=== PATIENT | female | born 1995 | race Caucasian/White ===

== ENCOUNTER 2023-05-23 19:48 | Inpatient (IN) | payer BC, SELFPAY ==
[2023-05-23] VITALS (10 sets, daily range): BP systolic 100–141; BP diastolic 60–94; PULSE 80–100; RESP 18; TEMP 36.9–37
[2023-05-23 20:51] LABS: Hematocrit 39.3 % (36.0-48.0); Hemoglobin 13.7 g/dL (12.0-16.0); Mean Corpuscular HGB Conc 34.9 g/dL (29.9-35.2); Mean Corpuscular Hemoglobin 29.8 pg (26.7-34.0); Mean Corpuscular Volume 85.4 fL (81.0-99.0); Mean Platelet Volume 11.5 fL (9.5-13.5); Platelet Count 265 10^3/uL (150-450); Red Cell Distribution Width 12.7 % (11.0-15.0); White Blood Count 10.8 10^3/uL (4.0-11.0)
[2023-05-23 21:09] LABS: Amphetamine Screen Urine NEGATIVE (NEGATIVE); Barbiturates Screen Urine NEGATIVE (NEGATIVE); Benzodiazepines Screen Urine NEGATIVE (NEGATIVE); Buprenorphine Screen Urine NEGATIVE (NEGATIVE); Cannabinoid Screen Urine NEGATIVE (NEGATIVE); Cocaine Screen Urine NEGATIVE (NEGATIVE); Methadone Screen Urine NEGATIVE (NEGATIVE); Methamphetamines Screen Urine NEGATIVE (NEGATIVE); Opiate Screen Urine NEGATIVE (NEGATIVE); Oxycodone Screen Urine NEGATIVE (NEGATIVE); Phencyclidine Screen Urine NEGATIVE (NEGATIVE); Tricyclic Antidepressant Urine NEGATIVE (NEGATIVE)
[2023-05-23] MEDS: DINOPROSTONE 10 MG VAG INSERT.ER VAGINAL (21:26)
[2023-05-24] VITALS (43 sets, daily range): BP systolic 117–167; BP diastolic 62–101; PULSE 81–133; RESP 16–18; TEMP 35.8–36.8
--- NOTE | 2023-05-24 07:27 | W.PC.ACHO ---
Registration Status: ADM IN Primary Language: Palauan Preferred Language: Palauan Active Medications Generic Name Dose Route Start Last Admin Trade Name Joy PRN Reason Stop Dose Admin Carboprost Tromethamine 250 mcg 05/23/23 19:54 Carboprost Tromethamine 250 Mcg/Ml 1 Ml Vial IM Q15M PRN Bleeding Sodium Chloride 1,000 mls @ 125 mls/hr 05/23/23 20:00 Sodium Chloride 0.9% 1,000 Ml IV .Q8H PRN fluids as needed when active Oxytocin 10 unit/ Sodium 501 mls @ 6.012 mls/hr 05/23/23 20:00 Chloride IV Q24H KAYLEIGH 2 MILLIUNIT/MIN Clindamycin Phosphate/Dextrose 900 mg in 50 mls @ 100 mls/hr 05/23/23 22:25 Cleocin Phosphate/D5w 900 Mg/50 Ml Piggyback IV Q8H PRN LABOR Lidocaine 5 ml 05/23/23 19:54 Lidocaine Viscous 2% 15 Ml Topical Solution TOPICAL DIRECTED PRN Pain Lidocaine 1 ml 05/23/23 19:54 Lidocaine Hcl 1% 200 Mg/20 Ml Mdv INJ DIRECTED PRN Pain Methylergonovine Maleate 0.2 mg 05/23/23 19:54 Methylergonovine Maleate 0.2 Mg Tablet PO Q4H PRN Uterine Contractility/Contract Methylergonovine Maleate 0.2 mg 05/23/23 19:54 Methylergonovine Maleate 0.2 Mg/Ml Ampule IM ONCE PRN Uterine Contractility/Contract Nalbuphine HCl 10 mg 05/23/23 19:54 Nalbuphine Hcl 10 Mg/Ml Ampule IV Q3H PRN Pain Ondansetron HCl 4 mg 05/23/23 19:54 Ondansetron Pf 4 Mg/2 Ml Vial IV Q6H PRN Nausea And Vomiting Ondansetron HCl 4 mg 05/23/23 19:54 Ondansetron 4 Mg Rapdis Tablet SL Q6H PRN Nausea And Vomiting Oxytocin 10 unit 05/23/23 19:54 Oxytocin 100 Unit/10 Ml Vial IM ONCE PRN Uterine Bleeding Diet Category Date Time Status Clear Liquid Diet Diet 05/24/23 Breakfast Active IV Insertion/Site Date of IV Line Insertion [18g 05/23/23 right Hand] IV Insertion Time [18g right 20:32 Hand] Neurology Patient orientation (short person,place,time,situation list) [place] coma scale total score 15 [place] coma scale total score 15 [place] coma scale total score 15 Respiratory Lung sounds [Bilateral] clear Lung sounds [Bilateral] clear Oxygen Delivery Method Room Air Oxygen Delivery Method Room Air
--- NOTE | 2023-05-24 08:10 | PC.NURSE ---
0750 Mila Eldridge calls in for update on pt status and orders received for pt to have cervidil pulled and pitocin begun.
[2023-05-24] MEDS: OXYTOCIN 10 UNIT in 0.9 % SODIUM CHLORIDE 500 ML 6.012 UNIT IV ×2 (08:45→21:54)
[2023-05-24] MEDS: 0.9 % SODIUM CHLORIDE 1,000 ML 125 ML IV ×3 (08:45→21:17)
[2023-05-24] MEDS: CLINDAMYCIN PHOSPHATE/D5W 900 MG/50 ML PIGGYBACK 100 MG IV ×2 (09:00→17:20)
[2023-05-24] MEDS: ONDANSETRON PF 4 MG/2 ML VIAL IV (09:32)
[2023-05-24] MEDS: NALBUPHINE HCL 10 MG/ML AMPULE IV ×2 (11:38→17:20)
--- NOTE | 2023-05-24 13:25 | PM.OBHP ---
OB - H&P: HPI History of Present Illness Chief complaint: INDUCTION : 1 Para: 0 Gestational age based on last menstrual period: 39w5d Indications for induction: other (elective ) History of Present Dating criteria: LMP confirmed by 1st trimester US care: good care Ultrasounds: normal 1st trimester US and normal mid trimester US complications comment: none Medical complications OB: none Labs Blood type: A (+) positive Rubella: immune RPR/VDLR: nonreactive GBS status: positive HBsAG: negative (allergic to PCN will treat with Clindamycin ) Review of Systems ROS Status of ROS 10 or more systems reviewed and unremarkable except as noted in history and below Allergic/Immunologic Reports: other (PCN) PFSH PFSH Medical History Surgical History (Updated 05/23/23 @ 20:41 by Rosa Ojeda) Family History Grandmother Family history of diabetes mellitus Grandfather Pacemaker Social History Smoking status: Never smoker Non-prescribed substance use: denies use 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 Highest level of school completed/degree received: Bachelor's degree Are you now , , , , never or living with a partner: Little interest or pleasure in doing things: not at all Feeling down, depressed, or hopeless: not at all Feel stressed/tense/nervous/anxious/difficulty sleeping: not at all Do you think of yourself as: straight/heterosexual Gender Identity: female Meds Home Medications and Allergies Home Medications Medication Instructions Recorded Confirmed Type [id number] 1 mg 1 tab PO DAILY 05/23/23 05/23/23 History tablet Allergies Allergy/AdvReac Type Severity Reaction Status Date / Time Penicillins Allergy Severe Hives Verified 05/23/23 20:39 Exam Constitutional Vital Signs - 24 hr 05/23/23 20:28 05/23/23 20:31 05/23/23 21:26 Temperature 98.5 F Pulse Rate 100 H 93 H Respiratory Rate 18 Blood Pressure 141/94 H 132/82 H Blood Pressure [Left Arm] Oxygen Delivery Method 05/23/23 22:01 05/23/23 22:16 05/23/23 22:32 Temperature Pulse Rate 80 81 96 H Respiratory Rate Blood Pressure 137/77 H 135/77 H 127/64 H Blood Pressure [Left Arm] Oxygen Delivery Method 05/23/23 22:46 05/23/23 23:03 05/23/23 23:17 Temperature Pulse Rate 97 H 91 H 95 H Respiratory Rate Blood Pressure 100/62 119/60 136/62 H Blood Pressure [Left Arm] Oxygen Delivery Method 05/24/23 01:25 05/24/23 02:24 05/24/23 03:24 Temperature Pulse Rate 106 H 107 H 87 Respiratory Rate Blood Pressure 117/62 124/81 H 128/69 H Blood Pressure [Left Arm] Oxygen Delivery Method 05/24/23 05:25 05/24/23 06:24 05/24/23 07:24 Temperature Pulse Rate 103 H 92 H 96 H Respiratory Rate Blood Pressure 133/86 H 136/94 H 125/80 H Blood Pressure [Left Arm] Oxygen Delivery Method 05/24/23 08:44 05/24/23 09:13 05/24/23 09:44 Temperature Pulse Rate 93 H 97 H 95 H Respiratory Rate Blood Pressure 134/84 H 141/92 H 127/90 H Blood Pressure [Left Arm] Oxygen Delivery Method 05/24/23 10:05 05/24/23 07:15 05/24/23 10:15 Temperature 97.8 F Pulse Rate 82 99 H Respiratory Rate 16 Blood Pressure 123/81 H 125/86 H Blood Pressure [Left Arm] Oxygen Delivery Method 05/24/23 10:45 05/24/23 11:15 05/24/23 11:44 Temperature Pulse Rate 87 93 H 91 H Respiratory Rate Blood Pressure 132/89 H 134/76 H 141/81 H Blood Pressure [Left Arm] Oxygen Delivery Method 05/24/23 12:14 05/24/23 12:44 05/24/23 13:14 Temperature Pulse Rate 89 85 86 Respiratory Rate Blood Pressure 139/81 H 122/77 H 125/80 H Blood Pressure [Left Arm] Oxygen Delivery Method 05/23/23 19:58 05/23/23 21:10 05/23/23 23:17 Temperature 98.5 F 98.6 F Pulse Rate 100 H 95 H Respiratory Rate 18 18 Blood Pressure Blood Pressure [Left Arm] 141/94 H 136/62 H Oxygen Delivery Method Room Air 05/23/23 23:37 05/24/23 02:42 Temperature 98.2 F Pulse Rate Respiratory Rate 18 Blood Pressure Blood Pressure [Left Arm] Oxygen Delivery Method Room Air Documenting provider has reviewed patient's vital signs: yes Common normals: no apparent distress, oriented x3, alert and well nourished General appearance: cooperative, comfortable, well kempt and well developed Nutritional appearance: overweight Orientation/consciousness: Yes awake, Yes oriented to person, Yes oriented to place and Yes oriented to time HENMT Common normals: normocephalic Head and scalp: normal to inspection Face and sinus: normal facial exam General ear: hearing grossly impaired Eye Common normals: PERRL General eye: normal appearance of both eyes Sclera: sclerae normal Pupil: PERRL Neck & C-Spine Common normals: full ROM General: normal visual inspection Lymph Lymphatic: no lymphadenopathy noted Chest Common normals: inspection of chest normal Respiratory Common normals: normal respiratory effort Effort & inspection: able to speak in complete sentences Auscultation: clear to auscultation bilaterally Cardio Common normals: no JVD, regular rate and regular rhythm Rate: regular rate Rhythm: regular rhythm GI Common normals: Normal to inspection, nondistended, normoactive bowel sounds present Inspection: normal to inspection Auscultation: normoactive bowel sounds Palpation: soft (gravid ) Rectal Exam - Female: deferred Common normals: no CVA tenderness External Female Exam: normal appearance of the urethra OB/external & speculum: external exam normal and cervical os open (1/60/-3 ) Manual OB Exam: dilated 1 cm, effaced (60%) and station high (-3) Amniotic Fluid: no fluid Back & Pelvis Common normals: no CVA tenderness Pelvis: buttocks normal Extremity Common normals: normal to inspection Neuro Common normals: oriented x3 and moves all extremities Sensorium/orientation: awake, alert, oriented to person, oriented to place and oriented to time Speech: speech normal Gait (neuro): normal gait Psych Common normals: mental status grossly normal Attitude: calm Speech: normal speech Thought process: normal thought process Thought content: normal thought content Results Labs Labs: Short CBC 06/26/23 Range/Units 20:40 WBC 10.8 (4.0-11.0) 10^3/uL Hgb 13.7 (12.0-16.0) g/dL Hct 39.3 (36.0-48.0) % Plt Count 265 (150-450) 10^3/uL
--- NOTE | 2023-05-24 13:46 | PM.OBPN ---
OB - PN: Subj Subjective Narrative: patient examined per this provider. Bedside U/S verifies vertex presentation. I did discuss with patient and her her vaginal exam and station is high at -3. she is not a good candidate for AROM at this time. Her exam is unchanged from my exam from the office. We did discuss after Cervidil and Pitocin there is no change but she has only had pitocin infusing for 3 hours. she is in agreement to rest, nap and try and relax. She would like to continue Pitocin until supper time and if there is no change, since she is not ruptured she would agree to go home and be discharged from hospital and wait for labor. Nurse in room at the time with me and witnessed the discussion. We can check her cervix at 4:30 p and assess for cervical change. Exam Constitutional Vital Signs - 24 hr 05/23/23 20:28 05/23/23 20:31 05/23/23 21:26 Temperature 98.5 F Pulse Rate 100 H 93 H Respiratory Rate 18 Blood Pressure 141/94 H 132/82 H Blood Pressure [Left Arm] Oxygen Delivery Method 05/23/23 22:01 05/23/23 22:16 05/23/23 22:32 Temperature Pulse Rate 80 81 96 H Respiratory Rate Blood Pressure 137/77 H 135/77 H 127/64 H Blood Pressure [Left Arm] Oxygen Delivery Method 05/23/23 22:46 05/23/23 23:03 05/23/23 23:17 Temperature Pulse Rate 97 H 91 H 95 H Respiratory Rate Blood Pressure 100/62 119/60 136/62 H Blood Pressure [Left Arm] Oxygen Delivery Method 05/24/23 01:25 05/24/23 02:24 05/24/23 03:24 Temperature Pulse Rate 106 H 107 H 87 Respiratory Rate Blood Pressure 117/62 124/81 H 128/69 H Blood Pressure [Left Arm] Oxygen Delivery Method 05/24/23 05:25 05/24/23 06:24 05/24/23 07:24 Temperature Pulse Rate 103 H 92 H 96 H Respiratory Rate Blood Pressure 133/86 H 136/94 H 125/80 H Blood Pressure [Left Arm] Oxygen Delivery Method 05/24/23 08:44 05/24/23 09:13 05/24/23 09:44 Temperature Pulse Rate 93 H 97 H 95 H Respiratory Rate Blood Pressure 134/84 H 141/92 H 127/90 H Blood Pressure [Left Arm] Oxygen Delivery Method 05/24/23 10:05 05/24/23 07:15 05/24/23 10:15 Temperature 97.8 F Pulse Rate 82 99 H Respiratory Rate 16 Blood Pressure 123/81 H 125/86 H Blood Pressure [Left Arm] Oxygen Delivery Method 05/24/23 10:45 05/24/23 11:15 05/24/23 11:44 Temperature Pulse Rate 87 93 H 91 H Respiratory Rate Blood Pressure 132/89 H 134/76 H 141/81 H Blood Pressure [Left Arm] Oxygen Delivery Method 05/24/23 12:14 05/24/23 12:44 05/24/23 13:14 Temperature Pulse Rate 89 85 86 Respiratory Rate Blood Pressure 139/81 H 122/77 H 125/80 H Blood Pressure [Left Arm] Oxygen Delivery Method 05/24/23 13:43 05/23/23 19:58 05/23/23 21:10 Temperature 98.5 F Pulse Rate 89 100 H Respiratory Rate 18 Blood Pressure 126/80 H Blood Pressure [Left Arm] 141/94 H Oxygen Delivery Method Room Air 05/23/23 23:17 05/23/23 23:37 05/24/23 02:42 Temperature 98.6 F 98.2 F Pulse Rate 95 H Respiratory Rate 18 18 Blood Pressure Blood Pressure [Left Arm] 136/62 H Oxygen Delivery Method Room Air Results Labs Labs: Short CBC 05/23/23 Range/Units 20:40 WBC 10.8 (4.0-11.0) 10^3/uL Hgb 13.7 (12.0-16.0) g/dL Hct 39.3 (36.0-48.0) % Plt Count 265 (150-450) 10^3/uL OB - PN: A/P Time Spent with Patient Time: Total time spent is greater than 50% in coordination of care (as documented) at patient's floor/unit and/or counseling patient: Total time spent with greater than 50% in coordination of care (as documented) at patient's floor/unit and/or counseling patient: less than 15 minutes
--- NOTE | 2023-05-24 19:54 | W.PC.ACHO ---
Registration Status: ADM IN Primary Language: Surinamese Preferred Language: Surinamese Report received from Bernarda Lindsey RN at 1914 Active Medications Generic Name Dose Route Start Last Admin Trade Name Freq PRN Reason Stop Dose Admin Carboprost Tromethamine 250 mcg 05/23/23 19:54 Carboprost Tromethamine 250 Mcg/Ml 1 Ml Vial IM Q15M PRN Bleeding Diphenhydramine HCl 25 mg 05/24/23 17:34 Diphenhydramine Hcl 50 Mg/Ml (1ml) Vial IV Q6H PRN Itching Ephedrine Sulfate 5 mg 05/24/23 17:34 Ephedrine Sulfate 50 Mg/Ml Vial IV Q5M PRN Blood Pressure - Low Fentanyl Citrate 100 mcg 05/24/23 17:34 Fentanyl Citrate/Pf 100 Mcg/2 Ml Vial EPIDURAL Q4H PRN Pain Sodium Chloride 1,000 mls @ 125 mls/hr 05/23/23 20:00 05/24/23 17:21 Sodium Chloride 0.9% 1,000 Ml IV 125 mls/hr .Q8H PRN Administration fluids as needed when active Oxytocin 10 unit/ Sodium 501 mls @ 6.012 mls/hr 05/23/23 20:00 05/24/23 08:45 Chloride IV 2 milliunit/min Q24H KAYLEIGH 6.012 mls/hr Administration 2 MILLIUNIT/MIN Clindamycin Phosphate/Dextrose 900 mg in 50 mls @ 100 mls/hr 05/24/23 09:00 05/24/23 17:20 Cleocin Phosphate/D5w 900 Mg/50 Ml Piggyback IV 100 mls/hr Q8H PRN 100 mls/hr LABOR Administration Ropivacaine/Sodium Chloride 400 mg in 200 mls @ 6 mls/hr 05/24/23 17:45 Naropin 0.2% 400 Mg/200 Ml Bag EPIDURAL Q24H KAYLEIGH Lidocaine 5 ml 05/23/23 19:54 Lidocaine Viscous 2% 15 Ml Topical Solution TOPICAL DIRECTED PRN Pain Lidocaine 1 ml 05/23/23 19:54 Lidocaine Hcl 1% 200 Mg/20 Ml Mdv INJ DIRECTED PRN Pain Lidocaine 5 ml 05/24/23 17:34 Lidocaine Hcl 2% Pf 100 Mg/5 Ml Vial INJ Q1H PRN Pain Methylergonovine Maleate 0.2 mg 05/23/23 19:54 Methylergonovine Maleate 0.2 Mg Tablet PO Q4H PRN Uterine Contractility/Contract Methylergonovine Maleate 0.2 mg 05/23/23 19:54 Methylergonovine Maleate 0.2 Mg/Ml Ampule IM ONCE PRN Uterine Contractility/Contract Nalbuphine HCl 10 mg 05/23/23 19:54 05/24/23 17:20 Nalbuphine Hcl 10 Mg/Ml Ampule IV 10 mg Q3H PRN Administration Pain Naloxone HCl 0.4 mg 05/24/23 17:34 Naloxone Hcl 0.4 Mg/Ml Vial IV ONCE PRN Allergic Reaction Ondansetron HCl 4 mg 05/23/23 19:54 05/24/23 09:32 Ondansetron Pf 4 Mg/2 Ml Vial IV 4 mg Q6H PRN Administration Nausea And Vomiting Ondansetron HCl 4 mg 05/23/23 19:54 Ondansetron 4 Mg Rapdis Tablet SL Q6H PRN Nausea And Vomiting Oxytocin 10 unit 05/23/23 19:54 Oxytocin 100 Unit/10 Ml Vial IM ONCE PRN Uterine Bleeding Diet Category Date Time Status Regular Consistency Diet Diet 05/24/23 Breakfast Active IV Insertion/Site Date of IV Line Insertion [18g 05/23/23 right Hand] IV Insertion Time [18g right 20:32 Hand] Neurology Patient orientation (short person,place,time,situation list) [place] coma scale total score 15 [place] coma scale total score 15 [place] coma scale total score 15 Respiratory Lung sounds [Bilateral] clear Lung sounds [Bilateral] clear Oxygen Delivery Method Room Air Oxygen Delivery Method Room Air
[2023-05-24] MEDS: ROPIVACAINE HCL/PF 400 MG/200 ML PREMIX EPIDURAL (21:18)
[2023-05-24] MEDS: FENTANYL CITRATE/PF 100 MCG/2 ML VIAL EPIDURAL (22:46)
[2023-05-24] MEDS: LIDOCAINE HCL 2% PF 100 MG/5 ML VIAL INJ (22:50)
--- NOTE | 2023-05-24 23:47 | PC.NURSE ---
MANGLE OPERATOR GARMENTS at bedside. Pulls epidural catheter out 1cm, administers bolus of lidocaine 2% into epidural and adds 100mcg of fentanyl to bag of naropin.
[2023-05-25] VITALS (37 sets, daily range): BP systolic 116–168; BP diastolic 55–108; PULSE 84–122; RESP 16–23; TEMP 35.5–37.2; O2SAT 96–98
[2023-05-25] MEDS: CLINDAMYCIN PHOSPHATE/D5W 900 MG/50 ML PIGGYBACK 100 MG IV ×2 (00:49→09:32)
[2023-05-25] MEDS: ONDANSETRON PF 4 MG/2 ML VIAL IV ×2 (01:41→12:11)
[2023-05-25] MEDS: 0.9 % SODIUM CHLORIDE 1,000 ML 125 ML IV (06:25)
--- NOTE | 2023-05-25 07:24 | W.PC.ACHO ---
Registration Status: ADM IN Primary Language: Vietnamese Preferred Language: Vietnamese Active Medications Generic Name Dose Route Start Last Admin Trade Name Freq PRN Reason Stop Dose Admin Carboprost Tromethamine 250 mcg 05/23/23 19:54 Carboprost Tromethamine 250 Mcg/Ml 1 Ml Vial IM Q15M PRN Bleeding Diphenhydramine HCl 25 mg 05/24/23 17:34 Diphenhydramine Hcl 50 Mg/Ml (1ml) Vial IV Q6H PRN Itching Ephedrine Sulfate 5 mg 05/24/23 17:34 Ephedrine Sulfate 50 Mg/Ml Vial IV Q5M PRN Blood Pressure - Low Fentanyl Citrate 100 mcg 05/24/23 17:34 05/24/23 22:46 Fentanyl Citrate/Pf 100 Mcg/2 Ml Vial EPIDURAL 100 mcg Q4H PRN Administration Pain Sodium Chloride 1,000 mls @ 125 mls/hr 05/23/23 20:00 05/25/23 06:25 Sodium Chloride 0.9% 1,000 Ml IV 125 mls/hr .Q8H PRN Administration fluids as needed when active Oxytocin 10 unit/ Sodium 501 mls @ 6.012 mls/hr 05/23/23 20:00 05/24/23 21:54 Chloride IV 2 milliunit/min Q24H KAYLEIGH 6.012 mls/hr Administration 2 MILLIUNIT/MIN Clindamycin Phosphate/Dextrose 900 mg in 50 mls @ 100 mls/hr 05/24/23 09:00 05/25/23 00:49 Cleocin Phosphate/D5w 900 Mg/50 Ml Piggyback IV 100 mls/hr Q8H PRN 100 mls/hr LABOR Administration Ropivacaine/Sodium Chloride 400 mg in 200 mls @ 6 mls/hr 05/24/23 17:45 05/24/23 21:18 Naropin 0.2% 400 Mg/200 Ml Bag EPIDURAL 2 mls/hr Q24H KAYLEIGH 2 mls/hr Administration Lidocaine 5 ml 05/23/23 19:54 Lidocaine Viscous 2% 15 Ml Topical Solution TOPICAL DIRECTED PRN Pain Lidocaine 1 ml 05/23/23 19:54 Lidocaine Hcl 1% 200 Mg/20 Ml Mdv INJ DIRECTED PRN Pain Lidocaine 5 ml 05/24/23 17:34 05/24/23 22:50 Lidocaine Hcl 2% Pf 100 Mg/5 Ml Vial INJ 5 ml Q1H PRN Administration Pain Methylergonovine Maleate 0.2 mg 05/23/23 19:54 Methylergonovine Maleate 0.2 Mg Tablet PO Q4H PRN Uterine Contractility/Contract Methylergonovine Maleate 0.2 mg 05/23/23 19:54 Methylergonovine Maleate 0.2 Mg/Ml Ampule IM ONCE PRN Uterine Contractility/Contract Nalbuphine HCl 10 mg 05/23/23 19:54 05/24/23 17:20 Nalbuphine Hcl 10 Mg/Ml Ampule IV 10 mg Q3H PRN Administration Pain Naloxone HCl 0.4 mg 05/24/23 17:34 Naloxone Hcl 0.4 Mg/Ml Vial IV ONCE PRN Allergic Reaction Ondansetron HCl 4 mg 05/23/23 19:54 05/25/23 01:41 Ondansetron Pf 4 Mg/2 Ml Vial IV 4 mg Q6H PRN Administration Nausea And Vomiting Ondansetron HCl 4 mg 05/23/23 19:54 Ondansetron 4 Mg Rapdis Tablet SL Q6H PRN Nausea And Vomiting Oxytocin 10 unit 05/23/23 19:54 Oxytocin 100 Unit/10 Ml Vial IM ONCE PRN Uterine Bleeding Diet Category Date Time Status Regular Consistency Diet Diet 05/24/23 Breakfast Active Neurology [place] coma scale total score 15 Respiratory Lung sounds [Bilateral] clear Oxygen Delivery Method Room Air Cardiology Heart Sounds Regular Catheter Urinary Catheter Date of 05/25/23 Insertion [Urethral]
[2023-05-25] MEDS: OXYTOCIN 10 UNIT in 0.9 % SODIUM CHLORIDE 500 ML 6.012 UNIT IV (07:26)
--- NOTE | 2023-05-25 08:41 | PM.OBPNL ---
Pain Control Comments: SVE done, patient is /0 she is feeling some pelvic pressure , pitocin is currently off and we will restart it at 10 mu in an hour. PVU and agrees with the plan of care. Pelvic Exam Dilation (cm): 5 Effacement (%): 90 Contractions Monitor mode: External Contraction pattern: Irregular Contraction intensity: Moderate to Strong station: -2 status: Category I
--- NOTE | 2023-05-25 13:13 | PC.NURSE ---
approx 1000ml straw colored urine noted
--- NOTE | 2023-05-25 14:33 | PM.OBPRCCS ---
Procedure Pre-op/Post-op diagnoses: Pre-Op/Post-Op Diagnoses Preoperative diagnosis: Induction of labor at full-term. Arrest of labor. Postoperative diagnosis same. Operation Date: 05/25/23 13:30 <No data on this case meets the specified criteria> Procedure: Procedures Operation Date: 05/25/23 13:30 Actual Procedure Side Surgeon p ; DELIVERY OF A VIABLE BABY BOY Not Applicable Syd Grossman MD Primary low transverse section. Surgeon Dr. Grossman. Drafter Heating And Ventilating: Mila Martin CNM Drafter Heating And Ventilating: CE MARTIN Estimated blood loss (mL): 800 Disposition: floor Anesthesia type: Epidural Complications: None Narrative: The patient was placed on the OR table in the dorsal supine position, prepped and draped in a sterile fashion. A Pfannenstiel incision was placed and carried down through the abdominal wall in layers. The fascia was incised transversely. The rectus muscles were in the midline and peritoneum was opened sharply. The uterine serosa was incised over the lower uterine segment. The bladder was pushed down. The uterus was incised in the lower uterine segment area and incision extended transversely with bandage scissors. Amniotic fluid was clear. The head was brought out through the incision without difficulty. The rest of the baby came out without difficulty. The cord was clamped and cut and baby transferred to pediatric personnel for further management. The placenta delivered spontaneously. The uterus was wiped off of all clots and debris clean and closed using running interlocking #1 Monocryl sutures in the first layer and the second layer of running imbricating #1 Monocryl sutures. Hemostasis was excellent. The abdomen was then irrigated of all clots and debris and cleared and hemostasis was checked again and it was excellent. The abdomen was then closed in layers. The muscles were approximated in the midline using interrupted 2-0 chromic sutures. The fascia was closed using running #0 PDS sutures. The subcutaneous layer was lavaged with normal saline. Hemostasis was achieved with Bovie cautery. The skin was approximated with subcuticular 4-0 Vicryl closure. The patient tolerated the procedure well. She was then taken into the Recovery Room in stable condition. heart rate - 5 minute: 100 bpm or Greater respiratory effort - 5 minute: Slow Respiration/Weak Cry muscle tone - 5 minute: Active Movement reflex response - 5 minute: Prompt Response color - 5 minute: Bluish Hands or Feet total score - 5 minute: 8 heart rate - 10 minute: 100 bpm or Greater respiratory effort - 10 minute: Spontaneous/Strong Cry muscle tone - 10 minute: Active Movement reflex response - 10 minute: Prompt Response color - 10 minute: Bluish Hands or Feet total score - 10 minute: 9
--- NOTE | 2023-05-25 14:46 | PC.NURSE ---
PATIENT ARRIVED TO OR WITH CATHETER IN PLACE. PATIENT IS NOTED TO HAVE OUTPUT OF 600 ML OF CLEAR YELLOW URINE DURING CASE. PATIENT IS GOING BACK TO [facility] WITH CATHETER IN PLACE.
--- NOTE | 2023-05-25 14:51 | PM.OBPRCCS ---
Procedure Pre-op/Post-op diagnoses: Pre-Op/Post-Op Diagnoses Operation Date: 05/25/23 13:30 <No data on this case meets the specified criteria> Procedure: Procedures Operation Date: 05/25/23 13:30 Actual Procedure Side Surgeon p ; DELIVERY OF A VIABLE BABY BOY Not Applicable ySd Grossman MD Industrial Maintenance Electrician: CE MARTIN Narrative: Cam Milling Machine Operator Note: I first assisted Dr Grossman with this primary section for arrest of descent and arrest of dilatation. I first assisted surgeon as directed. I independently closed the SQ layer with 3-0 vicryl without difficulty. I then independently closed the incision with 4-0 vicryl on a Markel needle. Hemostasis noted at end of case. Patient tolerated well. Infant heart rate - 5 minute: 100 bpm or Greater respiratory effort - 5 minute: Slow Respiration/Weak Cry muscle tone - 5 minute: Active Movement reflex response - 5 minute: Prompt Response color - 5 minute: Bluish Hands or Feet total score - 5 minute: 8 heart rate - 10 minute: 100 bpm or Greater respiratory effort - 10 minute: Spontaneous/Strong Cry muscle tone - 10 minute: Active Movement reflex response - 10 minute: Prompt Response color - 10 minute: Bluish Hands or Feet total score - 10 minute: 9
--- NOTE | 2023-05-25 16:28 | PC.NURSE ---
eats, denies pain or needs. Miguel beltranl,
--- NOTE | 2023-05-25 17:57 | PC.NURSE ---
surgical drsg to lower abdomen CDI
--- NOTE | 2023-05-25 18:37 | PC.NURSE ---
awkaes to feed bottle, plan of care reviewed, verbalizes understanding, denies needs
[2023-05-25] MEDS: CLINDAMYCIN PHOSPHATE/D5W 900 MG/50 ML PIGGYBACK IV (21:30)
[2023-05-25] MEDS: KETOROLAC TROMETHAMINE 30 MG/ML VIAL IVP (22:46)
[2023-05-26] VITALS (8 sets, daily range): BP systolic 129–143; BP diastolic 75–92; PULSE 91–107; RESP 15–18; TEMP 36.6–37.5; O2SAT 99–100
[2023-05-26] MEDS: ENOXAPARIN SODIUM 40 MG/0.4 ML SYRINGE SUBQ (01:53)
[2023-05-26 06:14] LABS: Basophils Percent Auto 0.2 % (0.2-2.0); Eosinophils Absolute Auto 0.1 10^3/uL (0.0-0.7); Eosinophils Percent Auto 1.1 % (0.9-7.0); Hemoglobin 10.8 g/dL (12.0-16.0); Immature Granulocytes Abs Auto 0.08 10^3/uL (0.00-0.03); Immature Granulocytes Pct Auto 0.6 % (0.0-0.5); Lymphocytes Absolute Auto 1.9 10^3/uL (1.2-3.8); Lymphocytes Percent Auto 14.3 % (20.5-60.0); Mean Corpuscular HGB Conc 32.7 g/dL (29.9-35.2); Mean Corpuscular Hemoglobin 29.8 pg (26.7-34.0); Mean Corpuscular Volume 90.9 fL (81.0-99.0); Mean Platelet Volume 11.1 fL (9.5-13.5); Monocytes Absolute Auto 1.2 10^3/uL (0.3-0.8); Monocytes Percent Auto 9.3 % (1.7-12.0); Neutrophils Absolute Auto 9.9 10^3/uL (1.4-6.5); Neutrophils Percent Auto 74.5 % (43.0-75.0); Platelet Count 226 10^3/uL (150-450); Red Blood Count 3.63 10^6/uL (4.20-5.40); Red Cell Distribution Width 12.8 % (11.0-15.0); White Blood Count 13.3 10^3/uL (4.0-11.0)
[2023-05-26] MEDS: KETOROLAC TROMETHAMINE 30 MG/ML VIAL IVP ×3 (07:49→20:08)
--- NOTE | 2023-05-26 08:11 | PM.OBPN ---
OB - PN: Subj Subjective Patient comments: no complaints Thornton status: doing well Exam Constitutional Vital Signs - 24 hr 05/25/23 08:36 05/25/23 09:06 05/25/23 09:36 Temperature Pulse Rate 108 H 108 H 87 Respiratory Rate Blood Pressure 133/88 H 125/84 H 131/77 H Blood Pressure [Left Arm] Pulse Oximetry Oxygen Delivery Method 05/25/23 14:55 05/25/23 15:00 05/25/23 14:42 Temperature 98.8 F 97.5 F L Pulse Rate Respiratory Rate Blood Pressure Blood Pressure [Left Arm] Pulse Oximetry 98 Oxygen Delivery Method 05/25/23 14:44 05/25/23 14:45 05/25/23 14:50 Temperature Pulse Rate Respiratory Rate Blood Pressure 140/91 H 137/80 H Blood Pressure [Left Arm] Pulse Oximetry 98 98 98 Oxygen Delivery Method 05/25/23 14:50 05/25/23 14:55 05/25/23 15:01 Temperature Pulse Rate Respiratory Rate Blood Pressure 137/80 H 145/84 H 124/93 H Blood Pressure [Left Arm] Pulse Oximetry 97 97 97 Oxygen Delivery Method 05/25/23 15:05 05/25/23 15:11 05/25/23 17:20 Temperature Pulse Rate 100 H 94 H Respiratory Rate 23 22 Blood Pressure 141/93 H 125/107 H Blood Pressure [Left Arm] Pulse Oximetry 97 96 98 Oxygen Delivery Method Room Air 05/25/23 20:00 05/26/23 01:58 05/26/23 05:24 Temperature 99.0 F 98.8 F 97.8 F Pulse Rate 90 98 H 99 H Respiratory Rate 18 16 18 Blood Pressure Blood Pressure [Left Arm] 147/94 H 143/84 H Pulse Oximetry 98 100 99 Oxygen Delivery Method Room Air Room Air Room Air 05/26/23 08:02 Temperature 97.9 F Pulse Rate 99 H Respiratory Rate 16 Blood Pressure Blood Pressure [Left Arm] 137/92 H Pulse Oximetry Oxygen Delivery Method Documenting provider has reviewed patient's vital signs: yes Common normals: no apparent distress Respiratory Common normals: normal respiratory effort and clear to auscultation bilaterally Cardio Common normals: regular rate and regular rhythm GI Common normals: Normal to inspection, nondistended, normoactive bowel sounds present Extremity Common normals: normal to inspection, no clubbing, cyanosis or edema and no calf tenderness Results Labs Labs: Short CBC 05/26/23 Range/Units 05:51 WBC 13.3 H (4.0-11.0) 10^3/uL Hgb 10.8 L (12.0-16.0) g/dL Hct 33.0 L (36.0-48.0) % Plt Count 226 (150-450) 10^3/uL OB - PN: A/P Plan - day: 1 Plan: routine postop care Time Spent with Patient Time: Total time spent is greater than 50% in coordination of care (as documented) at patient's floor/unit and/or counseling patient: Total time spent with greater than 50% in coordination of care (as documented) at patient's floor/unit and/or counseling patient: less than 15 minutes
[2023-05-26] MEDS: DOCUSATE SODIUM 100 MG CAPSULE PO ×2 (10:26→20:08)
--- NOTE | 2023-05-26 19:22 | W.PC.ACHO ---
Registration Status: ADM IN Primary Language: Trinidadian Preferred Language: Trinidadian Active Medications Generic Name Dose Route Start Last Admin Trade Name Freq PRN Reason Stop Dose Admin Al Hydroxide/Mg Hydroxide 2,400 mg 05/25/23 16:51 Magnesium Hydroxide 2,400 Mg/10 Ml Oral.Susp PO Q6H PRN Dyspepsia Carboprost Tromethamine 250 mcg 05/23/23 19:54 Carboprost Tromethamine 250 Mcg/Ml 1 Ml Vial IM Q15M PRN Bleeding Docusate Sodium 100 mg 05/26/23 09:00 05/26/23 10:26 Docusate Sodium 100 Mg Capsule PO 100 mg BID KAYLEIGH Administration Enoxaparin Sodium 40 mg 05/26/23 02:00 05/26/23 01:53 Enoxaparin Sodium 40 Mg/0.4 Ml Syringe SUBQ 40 mg Q24H KAYLEIGH Administration Ephedrine Sulfate 5 mg 05/24/23 17:34 Ephedrine Sulfate 50 Mg/Ml Vial IV Q5M PRN Blood Pressure - Low Fentanyl Citrate 100 mcg 05/24/23 17:34 05/24/23 22:46 Fentanyl Citrate/Pf 100 Mcg/2 Ml Vial EPIDURAL 100 mcg Q4H PRN Administration Pain Sodium Chloride 1,000 mls @ 125 mls/hr 05/23/23 20:00 05/25/23 13:30 Sodium Chloride 0.9% 1,000 Ml IV Infused .Q8H PRN Infusion fluids as needed when active Oxytocin 10 unit/ Sodium 501 mls @ 6.012 mls/hr 05/23/23 20:00 05/25/23 12:30 Chloride IV Infused Q24H KAYLEIGH Infusion 2 MILLIUNIT/MIN Clindamycin Phosphate/Dextrose 900 mg in 50 mls @ 100 mls/hr 05/24/23 09:00 05/25/23 10:05 Cleocin Phosphate/D5w 900 Mg/50 Ml Piggyback IV Infused Q8H PRN Infusion LABOR Ropivacaine/Sodium Chloride 400 mg in 200 mls @ 6 mls/hr 05/24/23 17:45 05/25/23 13:30 Naropin 0.2% 400 Mg/200 Ml Bag EPIDURAL Infused Q24H KAYLEIGH Infusion Ibuprofen 800 mg 05/25/23 16:51 Ibuprofen 400 Mg Tablet PO Q8H PRN Pain Ketorolac Tromethamine 30 mg 05/25/23 16:51 05/26/23 13:53 Ketorolac Tromethamine 30 Mg/Ml Vial IVP 05/27/23 16:52 30 mg Q6H PRN Administration Pain Lidocaine 5 ml 05/23/23 19:54 Lidocaine Viscous 2% 15 Ml Topical Solution TOPICAL DIRECTED PRN Pain Lidocaine 1 ml 05/23/23 19:54 Lidocaine Hcl 1% 200 Mg/20 Ml Mdv INJ DIRECTED PRN Pain Lidocaine 5 ml 05/24/23 17:34 05/24/23 22:50 Lidocaine Hcl 2% Pf 100 Mg/5 Ml Vial INJ 5 ml Q1H PRN Administration Pain Methylergonovine Maleate 0.2 mg 05/23/23 19:54 Methylergonovine Maleate 0.2 Mg Tablet PO Q4H PRN Uterine Contractility/Contract Methylergonovine Maleate 0.2 mg 05/23/23 19:54 Methylergonovine Maleate 0.2 Mg/Ml Ampule IM ONCE PRN Uterine Contractility/Contract Nalbuphine HCl 10 mg 05/23/23 19:54 05/24/23 17:20 Nalbuphine Hcl 10 Mg/Ml Ampule IV 10 mg Q3H PRN Administration Pain Naloxone HCl 0.4 mg 05/24/23 17:34 Naloxone Hcl 0.4 Mg/Ml Vial IV ONCE PRN Allergic Reaction Ondansetron HCl 4 mg 05/23/23 19:54 05/25/23 12:11 Ondansetron Pf 4 Mg/2 Ml Vial IV 4 mg Q6H PRN Administration Nausea And Vomiting Ondansetron HCl 4 mg 05/23/23 19:54 Ondansetron 4 Mg Rapdis Tablet SL Q6H PRN Nausea And Vomiting Ondansetron HCl 4 mg 05/25/23 16:51 Ondansetron Pf 4 Mg/2 Ml Vial IV Q6H PRN Nausea And Vomiting Ondansetron HCl 4 mg 05/25/23 16:51 Ondansetron 4 Mg Rapdis Tablet PO Q6H PRN Nausea And Vomiting Oxycodone/Acetaminophen 2 each 05/25/23 16:51 05/26/23 17:29 Oxycodone Hcl/Acetaminophen 5-325 Mg Tablet PO 2 each Q4H PRN Administration Pain Oxytocin 10 unit 05/23/23 19:54 Oxytocin 100 Unit/10 Ml Vial IM ONCE PRN Uterine Bleeding Senna 17.2 mg 05/25/23 20:00 Sennosides 8.6 Mg Tablet PO QHS PRN Constipation Simethicone 80 mg 05/25/23 16:51 Simethicone 80 Mg Tab.Chew PO QID PRN Abdominal Distention Neurology Patient orientation (short person,place,time,situation list) Nasra coma scale total score 15 Respiratory Lung sounds [Throughout] clear Lung sounds [Bilateral] clear Pulse Oximetry 99 Pulse Oximetry 100 Pulse Oximetry 98 Oxygen Delivery Method Room Air Oxygen Delivery Method Room Air Oxygen Delivery Method Room Air Bowels Bowel Pattern No Bowel Movement Catheter Date Urinary Catheter Removed 05/26/23 [Urethral] Date Urinary Catheter Removed 05/26/23 Time Urinary Catheter 10:00 Discontinued [Urethral]
[2023-05-27] MEDS: SIMETHICONE 80 MG TAB.CHEW PO (00:28)
[2023-05-27] MEDS: ENOXAPARIN SODIUM 40 MG/0.4 ML SYRINGE SUBQ (02:44)
[2023-05-27] MEDS: KETOROLAC TROMETHAMINE 30 MG/ML VIAL IVP ×2 (02:44→09:35)
--- NOTE | 2023-05-27 07:15 | W.PC.ACHO ---
Registration Status: ADM IN Primary Language: Paraguayan Preferred Language: Paraguayan Active Medications Generic Name Dose Route Start Last Admin Trade Name Freq PRN Reason Stop Dose Admin Al Hydroxide/Mg Hydroxide 2,400 mg 05/25/23 16:51 Magnesium Hydroxide 2,400 Mg/10 Ml Oral.Susp PO Q6H PRN Dyspepsia Carboprost Tromethamine 250 mcg 05/23/23 19:54 Carboprost Tromethamine 250 Mcg/Ml 1 Ml Vial IM Q15M PRN Bleeding Docusate Sodium 100 mg 05/26/23 09:00 05/26/23 20:08 Docusate Sodium 100 Mg Capsule PO 100 mg BID KAYLEIGH Administration Enoxaparin Sodium 40 mg 05/26/23 02:00 05/27/23 02:44 Enoxaparin Sodium 40 Mg/0.4 Ml Syringe SUBQ 40 mg Q24H KAYLEIGH Administration Ephedrine Sulfate 5 mg 05/24/23 17:34 Ephedrine Sulfate 50 Mg/Ml Vial IV Q5M PRN Blood Pressure - Low Fentanyl Citrate 100 mcg 05/24/23 17:34 05/24/23 22:46 Fentanyl Citrate/Pf 100 Mcg/2 Ml Vial EPIDURAL 100 mcg Q4H PRN Administration Pain Sodium Chloride 1,000 mls @ 125 mls/hr 05/23/23 20:00 05/25/23 13:30 Sodium Chloride 0.9% 1,000 Ml IV Infused .Q8H PRN Infusion fluids as needed when active Oxytocin 10 unit/ Sodium 501 mls @ 6.012 mls/hr 05/23/23 20:00 05/25/23 12:30 Chloride IV Infused Q24H KAYLEIGH Infusion 2 MILLIUNIT/MIN Clindamycin Phosphate/Dextrose 900 mg in 50 mls @ 100 mls/hr 05/24/23 09:00 05/25/23 10:05 Cleocin Phosphate/D5w 900 Mg/50 Ml Piggyback IV Infused Q8H PRN Infusion LABOR Ropivacaine/Sodium Chloride 400 mg in 200 mls @ 6 mls/hr 05/24/23 17:45 05/25/23 13:30 Naropin 0.2% 400 Mg/200 Ml Bag EPIDURAL Infused Q24H KAYLEIGH Infusion Ibuprofen 800 mg 05/25/23 16:51 Ibuprofen 400 Mg Tablet PO Q8H PRN Pain Ketorolac Tromethamine 30 mg 05/25/23 16:51 05/27/23 02:44 Ketorolac Tromethamine 30 Mg/Ml Vial IVP 05/27/23 16:52 30 mg Q6H PRN Administration Pain Lidocaine 5 ml 05/23/23 19:54 Lidocaine Viscous 2% 15 Ml Topical Solution TOPICAL DIRECTED PRN Pain Lidocaine 1 ml 05/23/23 19:54 Lidocaine Hcl 1% 200 Mg/20 Ml Mdv INJ DIRECTED PRN Pain Lidocaine 5 ml 05/24/23 17:34 05/24/23 22:50 Lidocaine Hcl 2% Pf 100 Mg/5 Ml Vial INJ 5 ml Q1H PRN Administration Pain Methylergonovine Maleate 0.2 mg 05/23/23 19:54 Methylergonovine Maleate 0.2 Mg Tablet PO Q4H PRN Uterine Contractility/Contract Methylergonovine Maleate 0.2 mg 05/23/23 19:54 Methylergonovine Maleate 0.2 Mg/Ml Ampule IM ONCE PRN Uterine Contractility/Contract Nalbuphine HCl 10 mg 05/23/23 19:54 05/24/23 17:20 Nalbuphine Hcl 10 Mg/Ml Ampule IV 10 mg Q3H PRN Administration Pain Naloxone HCl 0.4 mg 05/24/23 17:34 Naloxone Hcl 0.4 Mg/Ml Vial IV ONCE PRN Allergic Reaction Ondansetron HCl 4 mg 05/23/23 19:54 05/25/23 12:11 Ondansetron Pf 4 Mg/2 Ml Vial IV 4 mg Q6H PRN Administration Nausea And Vomiting Ondansetron HCl 4 mg 05/23/23 19:54 Ondansetron 4 Mg Rapdis Tablet SL Q6H PRN Nausea And Vomiting Ondansetron HCl 4 mg 05/25/23 16:51 Ondansetron Pf 4 Mg/2 Ml Vial IV Q6H PRN Nausea And Vomiting Ondansetron HCl 4 mg 05/25/23 16:51 Ondansetron 4 Mg Rapdis Tablet PO Q6H PRN Nausea And Vomiting Oxycodone/Acetaminophen 2 each 05/25/23 16:51 05/27/23 00:25 Oxycodone Hcl/Acetaminophen 5-325 Mg Tablet PO 2 each Q4H PRN Administration Pain Oxytocin 10 unit 05/23/23 19:54 Oxytocin 100 Unit/10 Ml Vial IM ONCE PRN Uterine Bleeding Senna 17.2 mg 05/25/23 20:00 Sennosides 8.6 Mg Tablet PO QHS PRN Constipation Simethicone 80 mg 05/25/23 16:51 05/27/23 00:28 Simethicone 80 Mg Tab.Chew PO 80 mg QID PRN Administration Abdominal Distention Neurology Patient orientation (short person,place,time,situation list) Nasra coma scale total score 15 Nasra coma scale total score 15 Respiratory Lung sounds [Throughout] clear Lung sounds [Throughout] clear Lung sounds [Bilateral] clear Lung sounds [Bilateral] clear Oxygen Delivery Method Room Air Oxygen Delivery Method Room Air Cardiology Heart Sounds Regular Bowels Bowel Pattern No Bowel Movement Renal Bladder Pattern Continent Catheter Date Urinary Catheter Removed 05/26/23 [Urethral] Date Urinary Catheter Removed 05/26/23 Date Urinary Catheter Removed 05/26/23 Time Urinary Catheter 10:00 Discontinued [Urethral]
--- NOTE | 2023-05-27 07:53 | PC.NURSE ---
Mila Eldridge in to see pt
[2023-05-27 08:25] VITALS: BP 141/84; PULSE 107
--- NOTE | 2023-05-27 08:43 | PM.OBPN ---
Exam Constitutional Vital Signs - 24 hr 05/26/23 15:51 05/26/23 23:04 05/27/23 08:25 Temperature Pulse Rate 107 H 91 H 107 H Respiratory Rate Blood Pressure 129/90 H 133/75 H 141/84 H Blood Pressure [Left Arm] Oxygen Delivery Method 05/26/23 16:18 05/26/23 23:58 05/26/23 23:58 Temperature 98.4 F 99.5 F Pulse Rate 107 H Respiratory Rate 15 16 18 Blood Pressure Blood Pressure [Left Arm] 129/90 H Oxygen Delivery Method Room Air Room Air Documenting provider has reviewed patient's vital signs: yes Common normals: no apparent distress General appearance: cooperative Orientation/consciousness: Yes awake, Yes oriented to person, Yes oriented to place and Yes oriented to time Chest Common normals: inspection of chest normal Chest: symmetrical chest wall rise Respiratory Common normals: normal respiratory effort Effort & inspection: able to speak in complete sentences Auscultation: clear to auscultation bilaterally Cardio Common normals: regular rate, regular rhythm and no murmurs Rate: regular rate Rhythm: regular rhythm GI Common normals: Normal to inspection, nondistended, normoactive bowel sounds present Inspection: normal to inspection Auscultation: normoactive bowel sounds Palpation: soft and firm Rectal Exam - Female: deferred Common normals: no CVA tenderness OB - PN: A/P Plan - day: 2 Plan: routine postop care and discharge home Time Spent with Patient Time: Total time spent is greater than 50% in coordination of care (as documented) at patient's floor/unit and/or counseling patient: Total time spent with greater than 50% in coordination of care (as documented) at patient's floor/unit and/or counseling patient: less than 15 minutes
--- NOTE | 2023-05-27 09:02 | PC.NURSE ---
0830-awake in bed, resting comfortably. denies pain or needs. Plan of care reviewed. pt states request to be d/c. Plan of care reviewed. Assessed as charted. Abdominal incision clean dry, steristrips intact. Reports minimal rubra.
[2023-05-27] MEDS: DOCUSATE SODIUM 100 MG CAPSULE PO (09:35)
[2023-05-27 09:38] VITALS: TEMP 37.4
--- NOTE | 2023-05-27 10:17 | PC.NURSE ---
1015-up in chair holding . Reports feeling better. Pleasant. plan of care reviewed. d/c education video being viewed. denies needs
--- NOTE | 2023-05-27 13:31 | PC.NURSE ---
d/c instructions given and verbalizes understanding. eats lunch 1310-d/c to home via wheelchair with .
== END 2023-05-27 13:10 | disposition home or self-care (01) | DRG 788 ==
PROVIDERS: Obstetrics & Gynecology; Admitting Provider Midwife; PCP Family Medicine; Visit Provider Obstetrics & Gynecology
PROC: (CPT 59514; principal; 2023-05-25 13:30)
DX: O99.824 Streptococcus B carrier state complicating childbirth (principal); O62.0 Primary inadequate contractions; O62.1 Secondary uterine inertia; Z3A.39 39 weeks gestation of pregnancy; Z88.0 Allergy status to penicillin; Z83.3 Family history of diabetes mellitus; Z79.899 Other long term (current) drug therapy; Z37.0 Single live birth
CPT/HCPCS: 36415; 51702; 59050; 80307; 85025; 85027; 86850; 86900; 86901; 94667; 94761; 96365; 96366; 96368; 96372; 96375; 96376; J2300

== ENCOUNTER 2025-07-18 19:51 | Emergency (ER) | payer BC, SELFPAY ==
--- OUTSIDE RECORDS SUMMARY | 2025-07-18 19:59 | XMS_ITS | Clinical Summary ---
Author Organization [facility] Address [address] [facility] [place] [address] Care Team Providers Care Etch Operator [employer] Wafers Name Role Phone Eugenie Miller MD Primary Care Provider [phone] Trish Stovall BAKER OPERATOR AUTOMATIC Unavailable [phone] Allergies Active Allergy Reactions Criticality Noted Date Comments Penicillins Hives 04/21/2023 Medications buPROPion XL (Wellbutrin XL) 150 MG 24 hr tabletIndicatio ns:Obesity (BMI 30-39.9) TAKE 1 TABLET BY MOUTH ONCE EVERY MORNING *DO NOT CRUSH/CHEW/S PLIT* 90 tablet 1 06/17/2025 Active naltrexone (Depade) 50 MG tabletIndicatio ns:Obesity (BMI 30-39.9) TAKE 0.5 TABLETS BY MOUTH DAILY. 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 [address] [facility] [place] [address] Trish Stovall NP 06/28/2025 Travel 06/27/2025 Travel 06/18/[address] [facility] [address] [facility] [place] [address] Trish tSovall NP Obesity (BMI 30-39.9) 06/16/[address] [facility] [address] [facility] [place] [phone] Trish Stovall NP Obesity (BMI 30-39.9) 05/24/2025 9:00 AM EDT Office Visit [facility] [address] [facility] [place] [phone] Trish Stovall NP Obesity (BMI 30-39.9) (Primary Dx); Acute bilateral low back pain without sciatica 05/24/[address] [facility] [address] [facility] [place] [phone] Trish Stovall NP 05/24/2025 Travel 05/21/2025 Travel 05/19/[address] [facility] [address] [place] [address] Trish Stovall NP Obesity (BMI 30-39.9) 04/29/2025 Results Follow-Up [facility] [address] [facility] [place] [phone] Trish Stovall NP XR lumbar spine 2 or 3 views, CBC and differential, Comprehensive metabolic panel, Lipid panel 04/26/2025 3:30 PM EDT Ancillary Procedure [facility] [address] [address] [place] [phone] Acute bilateral low back pain without sciatica 04/26/2025 3:00 PM EDT Office Visit [facility] [address] [facility] [place] [address] Trish Stovall NP Routine general medical examination at a health care facility (Primary Dx); Lipid screening; Acute bilateral low back pain without sciatica; Obesity (BMI 30-39.9); Diarrhea, unspecified type 04/26/[address] [facility] [address] [place] [address] Trish Stovall NP 04/26/2025 Travel 04/25/2025 Travel from Last 3 Months Family History Medical History Relation Name Comments Migraines Mother Alzheimer's disease Paternal Grandfather Teofilo Topmigdalia Mental illness Paternal Grandfather Teofilo Topmigdalia Diabetes Paternal Grandmother Ana Laura Topel Heart disease Paternal Grandmother Ana Laura Topel Relation Name Status Comments Father Alive Maternal Grandfather Alive Maternal Grandmother Alive Mother Alive Paternal Grandfather Teofilo Topel Paternal Grandmother Ana Laura Topel Alive Social History Tobacco Use Types Packs/Day Years Used Date Smoking Tobacco: Never Smokeless Tobacco: Never Tobacco Cessation:Counseling Given: Not Answered Alcohol Use Standard Drinks/Week Comments Not Currently 0 (1 standard drink = 0.6 oz pur e alcohol) Occasional drinker [id number] Health Literacy Answer Date Recor ded How often do you need to hav e someone help you when you read instructions, pamphlets, or other written material from your doctor or pharmacy? Never 04/25/2025 Humiliation, Afraid, Rape, and Kick questionnair e Answer Date Recorded Within the last year, have y ou been afraid of your partner or ex-partner? No 04/25/2025 Within the last year, have y ou been humiliated or emotionally abused in other ways by your partner or ex-partner? No Within the last year, have y ou been kicked, hit, slapped, or otherwise physically hurt by your partner or ex-partner? No 04/25/2025 Within the last year, have y ou been raped or forced to have any kind of sexual activity by your partner or ex-partner? No 04/25/2025 Social Connection and Isolation Panel [NHANES] A nswer Date Recorded In a typical week, how many times do you talk on the phone with family, friends, or neighbors? Twice a week 04/25/2025 How often do you get together with friends or re latives? Once a week 04/25/2025 How often do you attend uatsdin or scientologist serv ices? Never 04/25/2025 Do you belong to any clubs o r organizations such as uatsdin groups, unions, fraternal or athletic groups, or school groups? No 04/25/2025 How often do you attend meet ings of the clubs or organizations you belong to? Never 04/25/2025 Are you , , di vorced, , never , or living with a partner? 04/25/2025 AUDIT-C Answer Date Recorded Q1: How often do you have a drink containing alc ohol? Monthly or less 04/25/2025 Q2: How many drinks containi ng alcohol do you have on a typical day when you are drinking? 1 or 2 04/25/2025 Q3: How often do you have si x or more drinks on one occasion? Less than monthly 04/25/2025 Overall Financial Resource Strain (CARDIA) Answe r Date Recorded How hard is it for you to pa y for the very basics like food, housing, medical care, and heating? Not hard at all 04/25/2025 PHQ-2 Answer Date Recorded Patient Health Questionnaire-2 Score 0 04/26/2025 [facility] - Occupational Stress Questionnaire Answer Date Recorded Do you feel stress - tense, restless, nervous, or anxious, or unable to sleep at night because your mind is troubled all the time - these days? To some extent 04/25/2025 Exercise Vital Sign Answer Date Recorde d On average, how many days pe r week do you engage in moderate to strenuous exercise (like a brisk walk)? 5 days 04/25/2025 On average, how many minutes do you engage in exercise at this level? 20 min 04/25/2025 Hunger Vital Sign Answer Date Recorded Within the past 12 months, y ou worried that your food would run out before you got the money to buy more. Never true 04/25/20 25 Within the past 12 months, t he food you bought just didn't last and you didn't have money to get more. Never true 04/25/2025 PRAPARE - Transportation Answer Date Re corded In the past 12 months, has l ack of transportation kept you from medical appointments or from getting medications? No 03/29 In the past 12 months, has l ack of transportation kept you from meetings, work, or from getting things needed for daily living? No 04/25/2025 Housing Stability Vital Sign Answer Gopi e Recorded In the last 12 months, was t here a time when you were not able to pay the mortgage or rent on time? No 04/25/2025 In the past 12 months, how m any times have you moved where you were living? 0 04/25/2025 At any time in the past 12 m [facility], were you homeless or living in a [place] health [place] facility (including now)? No 04/25/2025 Comments No Sex and Gender Information Value Date Recorded Sex Assigned at Female 04/16/2023 7:40 PM EDT Legal Sex Female 7:08 PM EDT Gender Identity Female 04/16/2023 7:40 PM EDT Sexual Orientation Not on file Last Filed Vital Signs Vital Sign Reading Time Taken Comments Blood Pressure 122/76 06/28/2025 8:49 AM EDT Pulse 96 06/28/2025 8:49 AM EDT Temperature 36.4 C (97.6 F) 06/28/2025 8:49 AM EDT Respiratory Rate 18 04/26/2025 3:01 PM EDT Oxygen Saturation 96% 06/28/2025 8:49 AM EDT Inhaled Oxygen Concentration - - Weight 101 kg (222 lb 6.4 oz) 06/28/2025 8:49 AM EDT Height 177.8 cm (5' 10 ) 04/26/2025 3:01 PM EDT Body Mass Index 31.91 04/26/2025 3:01 PM EDT Plan of Treatment Upcoming Encounters Date Type Department Care Team (Late st Contact Info) Description 08/02/2025 9:00 AM EDT Office Visit [facility] [address] [place] [phone] Trish Stovall NP [address] [place] [place] [address] Health Maintenance Due Date Last Done Comments Influenza Vaccine (#1) 2025 Procedures Procedure Name Priority Date/Time Associated Diagnosis Comments XR LUMBAR SPINE 2-3 VIEWS Routine 04/26/2025 3:54 PM EDT Acute bilateral low back pain without sciatica LIPID PANEL Routine 04/26/2025 3:36 PM EDT Lipid screening COMPREHENSIVE METABOLIC PANEL Routine 04/26/2025 3:36 PM EDT Routine general medical examination at a health care facility Diarrhea, unspecified type CBC (INCLUDES DIFF/PLT) Routine 04/26/2025 3:36 PM EDT Routine general medical examination at a [facility] care facility from Last 3 Months Results * XR lumbar spine 2 or 3 views (04/26/2025 3:54 PM EDT) Anatomical Region Laterality Modality Spine, L-spine Radiographic Nina ging 04/26/2025 5:21 PM EDT Narrative 04/26/2025 5:21 PM EDT TITLE OF EXAM: XR LUMBAR SPINE 2-3 VIEWS REASON FOR EXAM: Chronic low back pain for 2-3 years, no trauma. TECHNIQUE: 3 radiographs of the lumbar spine COMPARISONS: None. FINDINGS: No fracture; normal vertebral body heights. Intervertebral spaces are fairly well-preserved. No radiographically significant facet osteoarthrosis. No focal soft tissue abnormality. IMPRESSION: No fracture, listhesis, or radiographically significant degenerative changes. DICTATED ON: 04/26/2025 3:10 PM This report has been electronically signed and approved by the interpreting radiologist. Procedure Note Sai Strickland MD - 04/26/2025 TITLE OF EXAM: XR LUMBAR SPINE 2-3 VIEWS REASON FOR EXAM: Chronic low back pain for 2-3 years, no trauma. TECHNIQUE: 3 radiographs of the lumbar spine COMPARISONS: None. FINDINGS: No fracture; normal vertebral body heights. Intervertebral spaces arefairly well-preserved. No radiographically significant facetosteoarthrosis. No focal soft tissue abnormality. IMPRESSION: No fracture, listhesis, or radiographically significant degenerativechanges. DICTATED ON: 04/26/2025 3:10 PM This report has been electronically signed and approved by theinterpreting radiologist. us Trish Stovall BAKER OPERATOR AUTOMATIC IMG XR PROCEDURES Final Result * CBC and differential (04/26/2025 3:36 PM EDT) WHITE BLOOD CELL COUNT 9.5 3.8 - 10.8 Thousand/u L [facility] RED BLOOD CELL COUNT 4.76 3.80 - 5.10 Million/uL [facility] HEMOGLOBIN 14.3 11.7 - 15.5 g/dL [facility] HEMATOCRIT 43.4 35.0 - 45.0 % [facility] MCV 91.2 80.0 - 100.0 fL [facility] MCH 30.0 27.0 - 33.0 pg [facility] MCHC 32.9 32.0 - 36.0 g/dL [facility] Comment: For adults, a slight decrease in the calculated MCHC value (in the range of 30 to 32 g/dL) is most likely not clinically significant; however, it should be interpreted with caution in correlation with other red cell parameters and the patient's clinical condition. RDW 12.0 11.0 - 15.0 % [facility] PLATELET COUNT 299 140 - 400 Thousand/u L [facility] MPV 10.5 7.5 - 12.5 fL [facility] ABSOLUTE NEUTROPHILS 7,211 1,500 - 7,800 cells/uL [facility] ABSOLUTE LYMPHOCYTES 1,416 850 - 3,900 cells/uL [facility] ABSOLUTE MONOCYTES 732 200 - 950 cells/uL [facility] ABSOLUTE EOSINOPHILS 76 15 - 500 cells/uL [facility] ABSOLUTE BASOPHILS 67 0 - 200 cells/uL [facility] NEUTROPHILS 75.9 % [facility] LYMPHOCYTES 14.9 % [facility] MONOCYTES 7.7 % [facility] EOSINOPHILS 0.8 % [facility] BASOPHILS 0.7 % [facility] Blood Venous blood specimen / Unknown 04/26/2025 3:36 PM EDT 04/26/2025 3:36 PM EDT Narrative Resulting Agency Comment Performing Organization Information Site ID: QPT Name: [facility] Address: [address] [place] [phone] Director: Eben Cummings MD Trish Stovall BAKER OPERATOR AUTOMATIC LAB BLOOD ORDERABLES Final Resu lt Performing Organization Address [facility]/ZIP Co de Phone Number [facility] * Lipid panel (04/26/2025 3:36 PM EDT) CHOLESTEROL, TOTAL 155 <200 mg/dL [facility] HDL CHOLESTEROL 56 > OR = 50 mg/dL [facility] TRIGLYCERIDES 50 <150 mg/dL [facility] LDL CHOLESTEROL 87 mg/dL (calc) [facility] Comment: Reference range: <100 Desirable range <100 mg/dL for primary prevention; <70 mg/dL for patients with CHD or diabetic patients with > or = 2 CHD risk factors. LDL-C is now calculated using the Hoang calculation, which is a validated novel method providing better accuracy than the Friedewald equation in the estimation of LDL-C. Florencio SS et al. NAKUL. 2013;310(19): 4416-7341 (http://education.Virtual Call Center/faq/BCV298) CHOL/HDLC RATIO 2.8 <5.0 (calc) [facility] NON HDL CHOLESTEROL 99 <130 mg/dL (calc) [facility] Comment: For patients with diabetes plus 1 major ASCVD risk factor, treating to a non-HDL-C goal of <100 mg/dL (LDL-C of <70 mg/dL) is considered a therapeutic option. Blood Venous blood specimen / Unknown 04/26/2025 3:36 PM EDT 04/26/2025 3:36 PM EDT Narrative Resulting Agency Comment Performing Organization Information Site ID: QPT Name: [facility] Address: [address] [place] [address], [address] [place] [phone] Director: Eben Cummings MD Trish Stovall BAKER OPERATOR AUTOMATIC LAB BLOOD ORDERABLES Final Resu lt [facility] * Comprehensive metabolic panel (04/26/2025 3:36 PM EDT) Glucose 72 65 - 99 mg/dL [facility] Comment: Fasting reference interval BUN 17 7 - 25 mg/dL [facility] Creatinine 0.68 0.50 - 0.96 mg/dL [facility] EGFR 122 > OR = 60 mL/min/1. 73m2 [facility] BUN/CREATININE RATIO SEE NOTE: 6 - 22 (calc) [facility] Comment: Not Reported: BUN and Creatinine are within reference range. Sodium 139 135 - 146 mmol/L [facility] Potassium, Bld 3.9 3.5 - 5.3 mmol/L [facility] Chloride 106 98 - 110 mmol/L [facility] Carbon Dioxide 22 20 - 32 mmol/L [facility] Calcium 9.3 8.6 - 10.2 mg/dL [facility] PROTEIN, TOTAL 7.2 6.1 - 8.1 g/dL [facility] ALBUMIN 4.7 3.6 - 5.1 g/dL [facility] GLOBULIN 2.5 1.9 - 3.7 g/dL (calc) [facility] ALBUMIN/GLOBULIN RATIO 1.9 1.0 - 2.5 (calc) [facility] BILIRUBIN, TOTAL 0.5 0.2 - 1.2 mg/dL [facility] ALKALINE PHOSPHATASE 71 31 - 125 U/L [facility] AST 17 10 - 30 U/L [facility] ALT 16 6 - 29 U/L [facility] Blood Venous blood specimen / Unknown 04/26/2025 3:36 PM EDT 04/26/2025 3:36 PM EDT Narrative Resulting Agency Comment Performing Organization Information Site ID: QPT Name: [facility] Address: [address] [place] [address], [address] [place] [phone] Director: Eben Cummings MD Trish Stovall BAKER OPERATOR AUTOMATIC LAB BLOOD ORDERABLES Final Resu [facility] from Last 3 Months Insurance Care Teams Etch Operator [employer] W[employer] Relationship Specialty Start Date End Date Eugenie Miller MD [address] [place] [address] PCP - General 04/16/23 Trish Stovall NP [address] [place] [address] Nurse Practitioner Family Medicine 04/26/25
--- OUTSIDE RECORDS SUMMARY | 2025-07-18 19:59 | XMS_ITS | Encounter Summary ---
Author Organization [facility] Address [address] [place] [address] Care Team Providers Care Box Stacker Name Role Phone Eugenie Miller MD Primary Care Provider [phone] Trish Stovall FUNERAL HOME DIRECTOR Unavailable [phone] Encounter Details Date Type Department Care Team (Latest Contact Info) Description 04/29/2025 [facility] [address] [place] [address] Trish Stovall NP [address] [place] [address] XR lumbar spine 2 or 3 views, CBC and differential, Comprehensive metabolic panel, Lipid panel Social History Tobacco Use Types Packs/Day Years Used Date Smoking Tobacco: Never Smokeless Tobacco: Never Alcohol Use Standard Drinks/Week Comments Not Currently [...] week 04/25/2025 How often do you attend druze or church serv ices? Never 04/25/2025 Do you belong to any clubs o r organizations such as druze groups, unions, fraternal or athletic groups, or [...] Recorded Patient Health Questionnaire-2 Score 0 04/26/2025 [facility]ational [facility] Questionnaire Answer Date Recorded [...] any time in the past 12 m [facility], were you homeless or living in a halfway (including now)? No 04/25/2025 Comments No Sex and Gender Information Value Date Recorded Sex Assigned at Female 04/16/2023 7:40 PM EDT Legal Sex Female 7:08 PM EDT Gender Identity Female 04/16/2023 7:40 PM EDT Sexual Orientation Not on file documented as of this encounter Plan of Treatment Upcoming Encounters Date Type Department Care Team (Late st Contact Info) Description 08/02/2025 9:00 AM EDT Office Visit [facility] [address] [place] [address] Trish Stovall NP [address] [place] [address] documented as of this encounter Visit Diagnoses Not on filedocumented in this encounter Care Teams Box Stacker Relationship Specialty Start Date End Date Eugenie Miller MD [address] [facility] [place] [address] PCP - General 04/16/23 Trish Stovall NP [address] [place] [address] Nurse Practitioner Family Medicine 04/26/25 documented as of this encounter
--- OUTSIDE RECORDS SUMMARY | 2025-07-18 19:59 | XMS_ITS | Encounter Summary ---
Author Organization [facility] Address [address] [place] [address] Care Team Providers Care Soap Grinder Name Role Phone Eugenie Miller MD Primary Care Provider [phone] Trish Stovall BORING MACHINE OPERATOR Unavailable [phone] Encounter Details Date Type Department Care Team (Late Contact Info) Description 06/10/2023 Abstract [facility] [address] [place] [phone] Farnaz Eldridge CNM [address] [place] [address] Social History Tobacco Use Types Packs/Day Years Used Date Smoking Tobacco: Never Smokeless Tobacco: Never Alcohol Use Standard Drinks/Week Comments Not Currently 0 (1 standard drink = 0.6 oz pur e alcohol) Caffeine: 1-2 cups/day Comments No Sex and Gender Information Value Date Recorded Sex Assigned at Female 04/16/2023 7:40 PM EDT Legal Sex Female 7:08 PM EDT Gender Identity Female 04/16/2023 7:40 PM EDT Sexual Orientation Not on file COVID-19 Exposure Response Date Recorded In the last 10 days, have yo u been in contact with someone who was confirmed or suspected to have Coronavirus/COVID-19? No / Unsure 06/02/2023 2:39 PM EDT documented as of this encounter Plan of Treatment Upcoming Encounters Date Type Department Care Team (Late st Contact Info) Description 08/02/2025 9:00 AM EDT Office Visit [facility] [address] [facility] [place] [phone] Trish Stovall NP [address] [facility] [place], [place] [id number] documented as of this encounter Visit Diagnoses Not on filedocumented in this encounter Care Teams Soap Grinder Relationship Specialty Start Date End Date Eugenie Miller MD [address] [facility] [place], [place] [phone] PCP - General 04/16/23 Trish Stovall NP [address] [facility] [place], [place] [phone] Nurse Practitioner Family Medicine 04/26/25 documented as of this encounter
[2025-07-18 20:13] VITALS: BP 100/84; PULSE 125; TEMP 39.4; O2SAT 100; BMI 28.7
--- NOTE | 2025-07-18 21:06 | ED.GENADUL1 ---
Documented by User: Rosy Herr 07/18/25 22:00 HPI HPI - General Adult General Chief complaint: Back Pain/Injury Stated complaint: FEVER, CHILLS, BODY ACHES Time Seen by Provider: 07/18/25 20:27 Source: patient Mode of arrival: walk-in Limitations: no limitations History of Present Illness HPI narrative: 30 year old female presents to the ED for fever, low back pain, headache, diarrhea, abd pain. She had a sore throat early this morning. Onset was today. Denies emesis, dysuria, cough, congestion. She took Aleve at 1500 today. Related Data Allergies Allergy/AdvReac Type Severity Reaction Status Date / Time Penicillins Allergy Severe Hives Verified 07/18/25 20:17 Opioid HPI Opioid Management Most Recent Opioid Data: Last Pain Scale 9 Today, 21:32 Last MAR Pain Assessment Today, 21:31 Ur Phencyclidine Scrn, (NEGATIVE) Negative 05/23/23, 20:40 Review of Systems ROS Constitutional Reports: fever and chills Ears, nose, mouth, and throat Reports: throat pain; Denies: neck pain Cardiovascular Denies: chest pain Respiratory Denies: shortness of breath or cough Gastrointestinal Reports: abdominal pain, nausea and diarrhea Genitourinary Denies: painful urination, urinary frequency, urinary urgency or blood in urine Musculoskeletal Reports: back pain; Denies: neck pain Neurological Reports: headache; Denies: numbness in extremities or dizziness PFSH PFSH Medical History Surgical History (Updated 05/23/23 @ 20:41 by Rosa Ojeda) History of repair of ACL ?Z98.890 - Other specified postprocedural states (ICD-10) Family History Grandmother Family history of diabetes mellitus Grandfather Pacemaker Social History Smoking status: Never smoker Non-prescribed substance use: denies use 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 Highest level of school completed/degree received: Bachelor's degree Are you now , , , , never or living with a partner: Little interest or pleasure in doing things: not at all Feeling down, depressed, or hopeless: not at all Feel stressed/tense/nervous/anxious/difficulty sleeping: not at all Gender Identity: female Exam Constitutional Vital Signs, click to edit/add: Last Vital Signs Temp 102.9 F H 07/18/25 20:13 Pulse 125 H 07/18/25 20:13 Resp 22 H 07/18/25 20:13 BP 100/84 07/18/25 20:13 Pulse Ox 100 07/18/25 20:13 O2 Del Method Room Air 07/18/25 20:13 Common normals: oriented x3 General appearance: cooperative; not comfortable HENMT Common normals: external ears normal and moist oral mucous membranes Mouth: oral and palatal mucosa normal Throat: posterior oropharynx normal Eye Common normals: conjunctivae normal and no scleral icterus Neck & C-Spine Common normals: supple Chest Chest: symmetrical chest wall rise Respiratory Common normals: normal respiratory effort Effort & inspection: able to speak in complete sentences and symmetric chest movement; no audible wheezes Cardio Common normals: regular rhythm Rate: tachycardic GI Common normals: soft to palpation and non-tender Neuro Common normals: oriented x3, moves all extremities and no focal motor deficits Sensorium/orientation: awake and alert Speech: speech normal Course Vital Signs Vital signs: Vital Signs Temperature 102.9 F H 07/18/25 20:13 Pulse Rate 125 H 07/18/25 20:13 Respiratory Rate 22 H 07/18/25 20:13 Blood Pressure 100/84 07/18/25 20:13 Pulse Oximetry 100 07/18/25 20:13 Oxygen Delivery Method Room Air 07/18/25 20:13 Temperature 102.9 F H 07/18/25 20:13 Pulse Rate 125 H 07/18/25 20:13 Respiratory Rate 22 H 07/18/25 20:13 Blood Pressure 100/84 07/18/25 20:13 Pulse Oximetry 100 07/18/25 20:13 Oxygen Delivery Method Room Air 07/18/25 20:13 Medical Decision Making MDM Narrative Medical decision making narrative: Covid-19 and influenza testing was pending. She declined a strep screen. Blood work, urinalysis, and CT scan were pending. Care was resumed to Dr. Marker. See her dictation for further evaluation and treatment. Medical Records Medical records reviewed: Yes I reviewed the patient's medical records Lab Data Labs: Lab Results 07/18/25 07/18/25 Range/Units 21:30 21:35 WBC 12.7 H (4.0-11.0) 10^3/uL RBC 4.85 (4.20-5.40) 10^6/uL Hgb 14.8 (12.0-16.0) g/dL Hct 42.5 (36.0-48.0) % MCV 87.6 (81.0-99.0) fL MCH 30.5 (26.7-34.0) pg MCHC 34.8 (29.9-35.2) g/dL RDW 12.1 (11.0-15.0) % Plt Count 298 (150-450) 10^3/uL MPV 10.0 (9.5-13.5) fL Neut % (Auto) 84.0 H (43.0-75.0) % Lymph % (Auto) 6.4 L (20.5-60.0) % [place] % (Auto) 8.8 (1.7-12.0) % Eos % (Auto) 0.0 L (0.9-7.0) % Baso % (Auto) 0.5 (0.2-2.0) % Neut # (Auto) 10.7 H (1.4-6.5) 10^3/uL Lymph # (Auto) 0.8 L (1.2-3.8) 10^3/uL [place] # (Auto) 1.1 H (0.3-0.8) 10^3/uL Eos # (Auto) 0.0 (0.0-0.7) 10^3/uL Baso # (Auto) 0.1 (0.0-0.1) 10^3/uL Abs Immat Gran (auto) 0.04 H (0.00-0.03) 10^3/uL Imm/Tot Granulo (auto) 0.3 (0.0-0.5) % Sodium 137 (136-145) mmol/L Potassium 3.2 L (3.5-5.1) mmol/L Chloride 101 (98-107) mmol/L Carbon Dioxide 25.6 (21.0-32.0) mmol/L Anion Gap 13.6 BUN 13.0 (7.0-18.0) mg/dL Creatinine 0.98 (0.55-1.02) mg/dL Est GFR ( Amer) >60 (>=60 mL/min/1.73m^2) Est GFR (Non-Af Amer) >60 (>=60 mL/min/1.73m^2) BUN/Creatinine Ratio 13.3 Glucose 90 (74-106) mg/dL Calcium 9.0 (8.5-10.1) mg/dL Total Bilirubin 1.3 H (0.2-1.0) mg/dL AST 14 L (15-37) U/L ALT 26 (14-59) U/L Alkaline Phosphatase 89 (46-116) U/L Total Protein 8.3 H (6.4-8.2) g/dL Albumin 4.4 (3.4-5.0) g/dL Globulin 3.9 g/dL Albumin/Globulin Ratio 1.1 Urine Color Yellow (YELLOW) Urine Clarity Clear (CLEAR) Urine pH 5.5 (5.0-9.0) Ur Specific [place] 1.020 (1.005-1.025) Urine Protein Negative (NEG/TRACE) mg/dL Urine Glucose (UA) Negative (NEGATIVE) mg/dL Urine Ketones >=80 A (NEGATIVE) mg/dL Urine Occult Blood Negative (NEGATIVE) Urine Nitrite Negative (NEGATIVE) Urine Bilirubin Small A (NEGATIVE) Urine Urobilinogen 0.2 (0.2-1.0) EU/dL Ur Leukocyte Esterase Negative (NEGATIVE) Urine HCG, Qual Negative (NEGATIVE) Influenza Type A Ag Negative Influenza Type B Ag Negative SARS-CoV-2 Ag (CV2AG) Negative (NEGATIVE) Imaging Data CT scan - abdomen: Radiologist's impression: ITS Impressions Abdomen/Pelvis CT 07/18/25 21:39 IMPRESSION: No acute findings. No nephrolithiasis or obstructive uropathy. Impression dictated by: Jayce Edouard M.D. 07/18/2025 10:40 PM Dictation Location: [place] [id number] Electronically authenticated by: [id number] Y Date: 07/18/2025 22:40 Discharge Plan Discharge Chief Complaint: Back Pain/Injury Clinical Impression: Fever, Back pain, Diarrhea, Acute viral syndrome Patient Disposition: Home, Self-Care Time of Disposition Decision: 22:52 Condition: Good Print Language: Malagasy Instructions: Viral Syndrome (ED) Referrals: RACHEL REDDING [Primary Care Provider, Family Practice] - 1 week Documented by User: Amie Jones MD 07/18/25 22:58 HPI HPI - General Adult General Chief complaint: Back Pain/Injury Stated complaint: FEVER, CHILLS, BODY ACHES Time Seen by Provider: 07/18/25 20:27 Related Data Allergies Allergy/AdvReac Type Severity Reaction Status Date / Time Penicillins Allergy Severe Hives Verified 07/18/25 20:17 Opioid HPI Opioid Management Most Recent Opioid Data: Last Pain Scale 9 Today, 21:32 Last MAR Pain Assessment Today, 21:31 Ur Phencyclidine Scrn, (NEGATIVE) Negative 05/23/23, 20:40 PFSH PFSH Medical History Surgical History (Updated 05/23/23 @ 20:41 by Rosa Ojeda) History of repair of ACL ?Z98.890 - Other specified postprocedural states (ICD-10) Family History Grandmother Family history of diabetes mellitus Grandfather Pacemaker Social History Smoking status: Never smoker Non-prescribed substance use: denies use 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 Highest level of school completed/degree received: Bachelor's degree Are you now , , , , never or living with a partner: Little interest or pleasure in doing things: not at all Feeling down, depressed, or hopeless: not at all Feel stressed/tense/nervous/anxious/difficulty sleeping: not at all Gender Identity: female Exam Constitutional Vital Signs, click to edit/add: Last Vital Signs Temp 102.9 F H 07/18/25 20:13 Pulse 125 H 07/18/25 20:13 Resp 22 H 07/18/25 20:13 BP 100/84 07/18/25 20:13 Pulse Ox 100 07/18/25 20:13 O2 Del Method Room Air 07/18/25 20:13 Course Vital Signs Vital signs: Vital Signs Temperature 102.9 F H 07/18/25 20:13 Pulse Rate 125 H 07/18/25 20:13 Respiratory Rate 22 H 07/18/25 20:13 Blood Pressure 100/84 07/18/25 20:13 Pulse Oximetry 100 07/18/25 20:13 Oxygen Delivery Method Room Air 07/18/25 20:13 Temperature 102.9 F H 07/18/25 20:13 Pulse Rate 125 H 07/18/25 20:13 Respiratory Rate 22 H 07/18/25 20:13 Blood Pressure 100/84 07/18/25 20:13 Pulse Oximetry 100 07/18/25 20:13 Oxygen Delivery Method Room Air 07/18/25 20:13 Medical Decision Making MDM Narrative Medical decision making narrative: Covid-19 and influenza testing was pending. She declined a strep screen. Blood work, urinalysis, and CT scan were pending. Care was resumed to Dr. Jones. See her dictation for further evaluation and treatment. This patient was seen and evaluated in conjunction with the nurse practitioner. She presents for evaluation of bodyaches, back pain and diarrhea. She had a sore throat earlier but that resolved. She does not have any sick contacts. We are concerned that she may have pyelonephritis and a CT scan was ordered. She has mildly elevated white count at 12.7 with a stable hemoglobin. Electrolytes are normal with a mildly low potassium at 3.2. Urine is negative for infection but positive for ketones. COVID and influenza testing are negative. The scan of the abdomen pelvis is negative for acute findings. Patient was reevaluated. She states she is feeling better at this time. She feels comfortable being discharged home. I explained to her that her symptoms are likely viral in nature. She will be discharged home with 2 [place] and Zofran to use as needed for back pain and a prescription for ibuprofen and Zofran and a note for work. She was encouraged to drink plenty of fluids and return to the emergency department as needed for ongoing or worsening symptoms or any concerns. She is not having any cough, chest pain or shortness of breath. Lab Data Labs: Lab Results 07/18/25 07/18/25 Range/Units 21:30 21:35 WBC 12.7 H (4.0-11.0) 10^3/uL RBC 4.85 (4.20-5.40) 10^6/uL Hgb 14.8 (12.0-16.0) g/dL Hct 42.5 (36.0-48.0) % MCV 87.6 (81.0-99.0) fL MCH 30.5 (26.7-34.0) pg MCHC 34.8 (29.9-35.2) g/dL RDW 12.1 (11.0-15.0) % Plt Count 298 (150-450) 10^3/uL MPV 10.0 (9.5-13.5) fL Neut % (Auto) 84.0 H (43.0-75.0) % Lymph % (Auto) 6.4 L (20.5-60.0) % [place] % (Auto) 8.8 (1.7-12.0) % Eos % (Auto) 0.0 L (0.9-7.0) % Baso % (Auto) 0.5 (0.2-2.0) % Neut # (Auto) 10.7 H (1.4-6.5) 10^3/uL Lymph # (Auto) 0.8 L (1.2-3.8) 10^3/uL [place] # (Auto) 1.1 H (0.3-0.8) 10^3/uL Eos # (Auto) 0.0 (0.0-0.7) 10^3/uL Baso # (Auto) 0.1 (0.0-0.1) 10^3/uL Abs Immat Gran (auto) 0.04 H (0.00-0.03) 10^3/uL Imm/Tot Granulo (auto) 0.3 (0.0-0.5) % Sodium 137 (136-145) mmol/L Potassium 3.2 L (3.5-5.1) mmol/L Chloride 101 (98-107) mmol/L Carbon Dioxide 25.6 (21.0-32.0) mmol/L Anion Gap 13.6 BUN 13.0 (7.0-18.0) mg/dL Creatinine 0.98 (0.55-1.02) mg/dL Est GFR ( Amer) >60 (>=60 mL/min/1.73m^2) Est GFR (Non-Af Amer) >60 (>=60 mL/min/1.73m^2) BUN/Creatinine Ratio 13.3 Glucose 90 (74-106) mg/dL Calcium 9.0 (8.5-10.1) mg/dL Total Bilirubin 1.3 H (0.2-1.0) mg/dL AST 14 L (15-37) U/L ALT 26 (14-59) U/L Alkaline Phosphatase 89 (46-116) U/L Total Protein 8.3 H (6.4-8.2) g/dL Albumin 4.4 (3.4-5.0) g/dL Globulin 3.9 g/dL Albumin/Globulin Ratio 1.1 Urine Color Yellow (YELLOW) Urine Clarity Clear (CLEAR) Urine pH 5.5 (5.0-9.0) Ur Specific [place] 1.020 (1.005-1.025) Urine Protein Negative (NEG/TRACE) mg/dL Urine Glucose (UA) Negative (NEGATIVE) mg/dL Urine Ketones >=80 A (NEGATIVE) mg/dL Urine Occult Blood Negative (NEGATIVE) Urine Nitrite Negative (NEGATIVE) Urine Bilirubin Small A (NEGATIVE) Urine Urobilinogen 0.2 (0.2-1.0) EU/dL Ur Leukocyte Esterase Negative (NEGATIVE) Urine HCG, Qual Negative (NEGATIVE) Influenza Type A Ag Negative Influenza Type B Ag Negative SARS-CoV-2 Ag (CV2AG) Negative (NEGATIVE) Imaging Data CT scan - abdomen: Radiologist's impression: ITS Impressions Abdomen/Pelvis CT 07/18/25 21:39 IMPRESSION: No acute findings. No nephrolithiasis or obstructive uropathy. Impression dictated by: Jayce Edouard M.D. 07/18/2025 10:40 PM Dictation Location: [place] [address] Electronically authenticated by: [id number] Y Date: 07/18/2025 22:40 Discharge Plan Discharge Chief Complaint: Back Pain/Injury Clinical Impression: Fever, Back pain, Diarrhea, Acute viral syndrome Patient Disposition: Home, Self-Care Time of Disposition Decision: 22:52 Condition: Good Print Language: Malagasy Instructions: Viral Syndrome (ED) Referrals: RACHEL REDDING [Primary Care Provider, [facility]] - 1 week
[2025-07-18] MEDS: 0.9 % SODIUM CHLORIDE 1,000 ML 1000 ML IV (21:31)
[2025-07-18] MEDS: ACETAMINOPHEN 500 MG TABLET 1000 MG PO (21:31)
[2025-07-18] MEDS: KETOROLAC TROMETHAMINE 30 MG/ML VIAL 15 MG IVP (21:32)
--- NOTE | 2025-07-18 21:39 | CT_ITS ---
[facility] [place] [id number] Patient Name: KAMALA LAI MRN: [id number] date: 1995 Sex: F Assigned Patient Location: ED.MAIN Current Patient Location: ED.MAIN Accession/Order Number: [id number] Exam Date: 07/18/2025 22:27 Report Date: 07/18/2025 22:40 At the request of: KATIA PRYOR Procedure: CT abdomen pelvis wo con CT Abdomen and Pelvis withoutcontrast TECHNIQUE: Axial imaging with 2-D reconstruction. . The CT exam was performed using one or more the following dose reduction techniques: Automated exposure control, adjustment of the MA and/or Kv according to patient size, or use of the iterative reconstruction technique. COMPARISON: None History: Flank pain LIMITATIONS: None LOWER THORAX Unremarkable LIVER: Unremarkable GALLBLADDER: No gallbladder abnormality identified. BILE DUCTS: No dilatation SPLEEN: Unremarkable PANCREAS: Unremarkable ADRENAL GLANDS: Unremarkable KIDNEYS:Unremarkable AORTA: No abdominal aortic aneurysm identified. RETROPERITONEUM: No significant retroperitoneal abnormalities identified. MESENTERY:Unremarkable STOMACH:Unremarkable SMALL BOWEL: The small bowel loops are nondistended. APPENDIX: The appendix is normal. COLON: Unremarkable URINARY BLADDER: Urinary bladder is unremarkable. REPRODUCTIVE SYSTEM: Reproductive structures are unremarkable. PNEUMOPERITONEUM: None PERITONEAL FLUID:None BONY STRUCTURES: Unremarkable ABDOMINAL WALL: Unremarkable CT/CT abdomen pelvis wo con IMPRESSION: No acute findings. No nephrolithiasis or obstructive uropathy. Impression dictated by: Jayce Edouard M.D. 07/18/2025 10:40 PM Dictation Location: [employer] Electronically authenticated by: [id number] Y Date: 07/18/2025 22:40
[2025-07-18 21:57] LABS: Hematocrit 42.5 % (36.0-48.0); Hemoglobin 14.8 g/dL (12.0-16.0); Immature Granulocytes Abs Auto 0.04 10^3/uL (0.00-0.03); Immature Granulocytes Pct Auto 0.3 % (0.0-0.5); Lymphocytes Absolute Auto 0.8 10^3/uL (1.2-3.8); Mean Corpuscular HGB Conc 34.8 g/dL (29.9-35.2); Mean Corpuscular Hemoglobin 30.5 pg (26.7-34.0); Mean Corpuscular Volume 87.6 fL (81.0-99.0); Platelet Count 298 10^3/uL (150-450); Red Blood Count 4.85 10^6/uL (4.20-5.40); White Blood Count 12.7 10^3/uL (4.0-11.0)
[2025-07-18 22:07] LABS: Glucose Urine UA NEGATIVE (NEGATIVE)
[2025-07-18 22:08] LABS: SARS-CoV-2 Ag NEGATIVE (NEGATIVE)
[2025-07-18 22:18] LABS: HCG Qualitative Urine* NEGATIVE (NEGATIVE)
[2025-07-18 22:21] LABS: Alanine Aminotransferase 26 U/L (14-59); Albumin Globulin Ratio 1.1; Albumin Level 4.4 g/dL (3.4-5.0); Alkaline Phosphatase 89 U/L (46-116); Anion Gap 13.6; Aspartate Amino Transferase 14 U/L (15-37); Blood Urea Nitrogen 13.0 mg/dL (7.0-18.0); Calcium 9.0 mg/dL (8.5-10.1); Carbon Dioxide 25.6 mmol/L (21.0-32.0); Chloride 101 mmol/L (98-107); Estimated GFR (African America >60 (>=60 mL/min/1.73m^2); Estimated GFR (Non-African Ame >60 (>=60 mL/min/1.73m^2); Globulin 3.9 g/dL; Glucose 90 mg/dL (74-106); Potassium 3.2 mmol/L (3.5-5.1); Sodium 137 mmol/L (136-145); Total Protein 8.3 g/dL (6.4-8.2)
[2025-07-18] MEDS: ONDANSETRON 4 MG RAPDIS TABLET SL (23:30)
[2025-07-18] MEDS: HYDROCODONE/ACET 5-325 MG TABLET PO (23:31)
== END 2025-07-18 23:39 | disposition home or self-care (01) ==
PROVIDERS: Nurse Practitioner Family; Emergency Provider Emergency Medicine; PCP Family Medicine
DX: R50.9 Fever, unspecified (principal); M54.50 Low back pain, unspecified; R19.7 Diarrhea, unspecified; B34.9 Viral infection, unspecified
CPT/HCPCS: 36415; 74176; 80053; 81003; 84703; 85025; 87804; 87811; 96361; 96374; 99285; J1885; Q0162